=== PATIENT | female | born 1945 | race Caucasian/White ===

== ENCOUNTER → 2017-03-12 | Outpatient (CLI) | payer MEDICARE, MEDICAID ==
[~2017-03-12] MED LIST: ABILIFY20 MG PO; ASPIRIN81 MG PO; CELEBREX100 MG PO; CELEBREX200 MG PO; COMPAZINE10 MG PO; DULCOLAX10 MG RECTAL; DYAZIDE 37.5-21 EACH PO; FOSAMAX70 MG PO; KLOR-CON M1010 MEQ PO; LIPITOR40 MG PO; MILK OF MAGNESI30 ML PO; NORVASC2.5 MG PO; OXYCODONE HCL E30 MG PO; OXYCODONE HCL5 MG PO; OXYCONTIN10 MG PO; OXYCONTIN15 MG PO; PANTOPRAZOLE SO20 MG PO; PREMARIN30 GM VAG; SENNA-S TABLET1 EACH PO; ULTRAM50 MG PO; VALIUM10 MG PO; ZOFRAN4 MG PO; ZOLOFT100 MG PO
== END | disposition short-term general hospital (02) ==
LOC: CLONCO 07:19
DX: D75.1 Secondary polycythemia (principal)